=== PATIENT | female | born 1955 | race Caucasian/White ===

== ENCOUNTER 2017-03-30 18:55 | Inpatient (IN) | payer OTHER ==
[~2017-03-30] VITALS: Ht 160 cm; Wt 56.7 kg
--- NOTE | 2017-03-30 18:58 | NUR ---
PT STATES SHE HAD A COLONOSCOPY ON WEDNESDAY THE HAD ONE POLUP REMOVED AND TODAY SHE IS HAVING BRIGHT RED BLOOD WITH CLOTS. PT CALLED DR. HANLEY AND WAS TOLD TO COME TO THE ED. PT STATES SHE MOVED HER BOWELS ABOUT 6 TIMES.
--- NOTE | 2017-03-30 19:22 | ED GI/GU/ABDOMINAL COMPLAINT ---
History of Present Illness General Chief Complaint: General Adult Stated Complaint: RECTAL BLEEDING Source: patient, family, old records Exam Limitations: no limitations Vital Signs & Intake/Output Vital Signs & Intake/Output Vital Signs Date Time Temp Pulse Resp B/P B/P Pulse O2 O2 Flow FiO2 Mean Ox Delivery Rate 03/30 1859 96.7 75 16 132/87 99 Room Air Allergies Coded Allergies: NO KNOWN ALLERGIES (07/07/16) Reconcile Medications Calcium Carbonate/Vitamin D3 (Calcium 500 + D Tablet) (Unknown Strength) TABLET (Unknown Dose) PO DAILY SUPPLEMENT (Reported) Multivitamin (Multi-Day Vitamins) 1 EACH TABLET 1 TAB PO DAILY SUPPLEMENT ( Reported) Simvastatin (Simvastatin*) 20 MG TABLET 1 TAB PO QPM CHOLESTEROL (Reported) Triage Note: PT STATES SHE HAD A COLONOSCOPY ON WEDNESDAY THE HAD ONE POLUP REMOVED AND TODAY SHE IS HAVING BRIGHT RED BLOOD WITH CLOTS. PT CALLED DR. HANLEY AND WAS TOLD TO COME TO THE ED. PT STATES SHE MOVED HER BOWELS ABOUT 6 TIMES. Triage Nurses Notes Reviewed? yes ? n Is pt currently ? No HPI: Patient is a 61 year old female presents complaining of rectal bleeding. Symptoms onset at 1615 today. approximately 8 episodes of zena red blood per rectum. Patient reports she is also passing blood clots greater than the size of a quarter. Patient had a colonoscopy on 03/26/17 and had a large polyp removed by Dr. Bailey. Patient called Dr. Subramanian this evening and was referred to the ER for further evaluation. Pain is minimal cramping sensation intermittently. Denies chest pain, lightheadedness, dyspnea, nausea, vomiting. (ROSMERY BAPTISTE) Past History Travel History Traveled to [place] past 21 day No Medical History Any Pertinent Medical History? see below for history Cardiovascular: hyperlipidemia Gastrointestinal: diverticulosis Surgical History Surgical History: colonoscopy with polypectomy Psychosocial History What is your primary language [place] Tobacco Use: Never used ETOH Use: occasional use Illicit Drug Use: denies illicit drug use Family History Hx Contributory? No (ROSMERY BAPTISTE) Review of Systems Review of Systems Constitutional: Denies: chills, fever. EENTM: Reports: no symptoms. Respiratory: Denies: cough, short of breath. Cardiovascular: Denies: chest pain. GI: Reports: see HPI. Genitourinary: Reports: no symptoms. Musculoskeletal: Reports: no symptoms. Skin: Reports: no symptoms. Neurological/Psychological: Reports: no symptoms. Hematologic/Endocrine: Reports: see HPI, bleeding. Immunologic/Allergic: Reports: no symptoms. (ROSMERY BAPTISTE) Physical Exam Physical Exam General Appearance: well developed/nourished, alert, awake Head: atraumatic, normal appearance Eyes: Bilateral: normal appearance, PERRL, EOMI. Ears, Nose, Throat, Mouth: hearing grossly normal, moist mucous membrane Neck: normal inspection, supple, full range of motion Respiratory: normal breath sounds, no respiratory distress, lungs clear Cardiovascular: regular rate/rhythm Gastrointestinal: normal bowel sounds, soft, non-tender Rectal: small amount of bright red blood in the rectal vault. Back: normal inspection, normal range of motion Extremities: normal range of motion Neurologic/Psych: no motor/sensory deficits, awake, alert, oriented x 3, normal gait, normal mood/affect Skin: intact, normal color, warm/dry Core Measures ACS in differential dx? No Severe Sepsis Present: No Septic Shock Present: No (ROSMERY BAPTISTE) Progress Differential Diagnosis: lower GI bleed secondary to recent procedure, anemia, diverticular bleed, upper gi bleed Initial ED EKG: none (ROSMERY BAPTISTE) Plan of Care: Orders Procedure Date/time Status CBC WITHOUT DIFFERENTIAL 03/31 200 Active Pathway - chart 03/30 2307 Active House Staff 03/30 2307 Active Patient Data 03/30 2307 Active Code Status 03/30 2307 Active Patient Data 03/30 230 Active Admit to inpatient 03/30 2235 Active MISTAKE 03/30 1926 Active PROTHROMBIN TIME 03/30 1926 Complete COMPREHENSIVE METABOLIC PANEL 03/30 1926 Complete CBC WITHOUT DIFFERENTIAL 03/30 1926 Complete TYPE & SCREEN (NOT X-MATCH) 03/30 1926 Complete VTE Mechanical Prophylaxis 03/30 UNK Active Current Medications Sig/Nery Start time Last Medication Dose Stop Time Status Admin Acetaminophen 650 MG Q6 PRN 03/30 2315 UNVr (Tylenol) Acetaminophen 1,000 MG Q6 PRN 03/30 2315 UNVr (Ofirmev) Oxycodone HCl 5 MG Q6P PRN 03/30 2315 UNVr (Roxicodone) Sodium Chloride 1,000 ML BOLUS ONE 03/30 2230 AC 03/30 (Normal Saline 0.9%) 03/30 3008 6895 Laboratory Tests 03/30/17 2000: Anion Gap 13, Estimated GFR > 60, BUN/Creatinine Ratio 32.9 H, Glucose 99, Calcium 9.4, Total Bilirubin 0.5, AST 34, ALT 50, Alkaline Phosphatase 57, Total Protein 6.5, Albumin 4.3, Globulin 2.2, Albumin/Globulin Ratio 2.0, PT 11.4, INR 1.09, CBC w Diff NO MAN DIFF REQ, RBC 3.75 L, MCV 90.7, MCH 30.9, RDW 13.0, MPV 9.1, Gran % 67.8, Lymphocytes % 22.4, Monocytes % 6.9, Eosinophils % 2.3, Basophils % 0.6, Absolute Granulocytes 3.8, Absolute Lymphocytes 1.3, Absolute Monocytes 0.4, Absolute Eosinophils 0.1, Absolute Basophils 0, PUBS MCHC 34.1 1909: Discussed with and seen by Dr. Gracia. Discussed with and seen by Dr. Subramanian 2009: Patient evaluated by Dr. Subramanian: plan for flex sigmoidoscopy this evening. (ROSMERY BAPTISTE) Comments: 03/30/2017 11:02:14 PM patient's case discussed with Dr. Jarrell, who feels it prudent to observe the patient in the intensive care unit given the diverticular bleed. (MAGED KHAN,AUDREY Mattson) Departure Departure Disposition: STILL A PATIENT Condition: Stable Clinical Impression Primary Impression: Lower GI bleed Secondary Impressions: Diverticular hemorrhage Referrals: TONYA KHAN,OVIDIO De Dios (PCP/Family) Departure Forms: Customer Survey General Discharge Information Admission Note [facility] Documentation of Exam: Documentation of any treatments & extenuating circumstances including Concerns Regarding Discharge (functional status, medication knowledge or non-compliance, living conditions, etc.) that warrant an admission rather than observation: Serial complete blood cell counts, monitor for further bleeding. Potential interventional radiology versus further GI intervention if bleeding does not improve. (ROSMERY BAPTISTE) PA/CRM MARKETING EXECUTIVE Co-Sign Statement Statement: ED Attending supervision documentation- [] I saw and evaluated the patient. I have also reviewed all the pertinent lab results and diagnostic results. I agree with the findings and the plan of care as documented in the PA's/CRM MARKETING EXECUTIVE's documentation. [x] I have reviewed the ED Record and agree with the PA's/CRM MARKETING EXECUTIVE's documentation. [] Additions or exceptions (if any) to the PAs/CRM MARKETING EXECUTIVE's note and plan are summarized below: [] (MAGED KHAN,AUDREY Mattson)
--- NOTE | 2017-03-30 19:24 | NUR ---
APPRECAITE TRIAGE NOTE. PT AMBULATORY TO BATHROOM TO PROVIDE URINE SPECIMEN. PA HEILTIMMY TO BEDSIDE FOR EVAL.
--- NOTE | 2017-03-30 20:05 | NUR ---
SST LAV BLUE PINK AND CHURCH DRAWN AND SENT TO LAB
[2017-03-30 20:12] LABS: ABSOLUTE BASOPHIL COUNT 0 /CUMM (0.0-0.2); ABSOLUTE EOSINOPHIL COUNT 0.1 /CUMM (0.0-0.7); ABSOLUTE GRANULOCYTE CT 3.8 /CUMM (1.4-6.5); ABSOLUTE LYMPH COUNT 1.3 /CUMM (1.2-3.4); ABSOLUTE MONOCYTE COUNT 0.4 /CUMM (0.10-0.60); BASOPHIL % 0.6 % (0.0-2.0); EOSINOPHIL % 2.3 % (0-5); GRANULOCYTE % 67.8 % (42.2-75.2); MEAN CORPUSCULAR HGB 30.9 PG (27.0-31.0); MEAN CORPUSCULAR HGB CONC 34.1 G/DL (33.0-37.0); MEAN CORPUSCULAR VOLUME 90.7 FL (81.0-99.0); MEAN PLATELET VOLUME 9.1 FL (7.4-10.4); PLATELET COUNT 227 /CUMM (130-400); RED BLOOD CELL CT 3.75 /CUMM (4.20-5.40); WHITE BLOOD CELL COUNT 5.6 /CUMM (4.8-10.8)
[2017-03-30] MEDS ORDERED: SIMVASTATIN20 M2 PO (20:14)
[2017-03-30] MEDS ORDERED: MULTI-DAY VITA1 EACH PO (20:14)
[2017-03-30] MEDS ORDERED: CALCIUM 500 +1 EAC5 PO (20:15)
[2017-03-30 20:17] LABS: PT 11.4 SEC (9.4-12.5)
--- NOTE | 2017-03-30 20:28 | NUR ---
DR. DUARTE TO BEDSIDE FOR EVALUATION.
--- NOTE | 2017-03-30 20:45 | NUR ---
PER REQUEST OF GI FLEETS TO BE GIVEN 20 MINUTES PRIOR TO GI PROCEDURE OF TIME OF THIS NOTE, GI TEAM NOT SSEMBLED.
--- NOTE | 2017-03-30 21:23 | NUR ---
PT REQUESTS TO DO ENEMA HERSELF, EDUICATED ON USE TO BR WILL NOTIFY THIS RN UPON COMPLETION.
--- NOTE | 2017-03-30 21:26 | NUR ---
PER PT EXPELLED ALOT OF STOOL.
--- NOTE | 2017-03-30 21:33 | NUR ---
GI AT BEDSIDE.
--- NOTE | 2017-03-30 21:50 | NUR ---
GI AT BEDSIDE.
--- NOTE | 2017-03-30 22:03 | NUR ---
JORGE L KHAN AT BEDSIDE,
--- NOTE | 2017-03-30 22:24 | NUR ---
RN AT [facility], [facility].
--- NOTE | 2017-03-30 22:38 | NUR ---
PER DR. BARTON PT TO BE ADMITTED. DISCUSSED WITH ROCK FARLEY AND AT BEDSIDE DISCUSSING WITH DR. SMITH.
--- NOTE | 2017-03-30 23:07 | NUR ---
PER LUIS, PT TO BE ICU OVERNIGHT, PT WITH NO ACTIVE BLEEDING NO BLEEDING FOUND WHEN SCOPE PERFORMED. ON BEDPAN AT THIS TIME NO ACTIVE BLEEDING, BP REMAINS LOW FOR PT MOST LIKEL D/T MEDS.
--- NOTE | 2017-03-30 23:17 | NUR ---
HOUSESTAFF AT BEDSIDE.
--- NOTE | 2017-03-30 23:23 | Cons- Gastroenterology ---
General Information and HPI Consulting Request Date of Consult: 03/30/17 Requested By: Emergency Department Reason for Consult: Hematochezia Source of Information: patient, old records History of Present Illness: The patient had a colonoscopy by Dr. Bailey on March 26 with resection of a large rectal polyp, and noted diverticulosis. She began to pass bright red blood per rectum yesterday, and has continued to do so. She's had approximate 8 passages of blood. She has developed some dizziness, which is positional. There has been no chest pain, shortness of breath, syncope, diarrhea, abdominal pain, nausea, vomiting, fever. She was noticed to have postural hypotension in the emergency room. Allergies/Medications Allergies: Coded Allergies: NO KNOWN ALLERGIES (07/07/16) Home Med List: Calcium Carbonate/Vitamin D3 (Calcium 500 + D Tablet) (Unknown Strength) TABLET 1 TAB PO DAILY SUPPLEMENT (Reported) Multivitamin (Multi-Day Vitamins) 1 EACH TABLET 1 TAB PO DAILY SUPPLEMENT ( Reported) Simvastatin (Simvastatin*) 20 MG TABLET 1 TAB PO QPM CHOLESTEROL (Reported) Current Medications: Current Medications Sig/Nery Start time Last Medication Dose Route Stop Time Status Admin Acetaminophen 650 MG Q6 PRN 03/30 2315 UNVr PO Acetaminophen 1,000 MG Q6 PRN 03/30 2315 UNVr IV Fentanyl Citrate 0 .STK-MED ONE 03/30 2210 DC .ROUTE Oxycodone HCl 5 MG Q6P PRN 03/30 2315 UNVr PO Sodium Chloride 1,000 ML BOLUS ONE 03/30 2230 AC / IV 03/30 232 2258 Sodium Phosphate 1 UNIT ONCE ONE 03/30 2030 DC 03/30 [place] 03/30 203 2100 Past History Travel History Traveled to [place] past 21 day No Medical History Cardiovascular: hyperlipidemia Surgical History Surgical History: none Psychosocial History ETOH Use: occasional use Illicit Drug Use: denies illicit drug use Review of Systems Review of Systems Constitutional: Denies: fever, malaise. EENTM: Denies: icterus, epistaxis. Cardiovascular: Denies: chest pain, edema, syncope. Respiratory: Denies: cough, short of breath. GI: Reports: see HPI. Genitourinary: Denies: dysuria, hematuria. Musculoskeletal: Denies: muscle stiffness, neck pain. Skin: Denies: jaundice, lesions. Neurological/Psychological: Denies: cognitive dysfunction, headache. Hematologic/Endocrine: Reports: bleeding. Denies: bruising, polyuria. Exam & Diagnostic Data Vital Signs and I&O Vital Signs Date Time Temp Pulse Resp B/P B/P Pulse O2 O2 Flow FiO2 Mean Ox Delivery Rate 03/30 1859 96.7 75 16 132/87 99 Room Air Physical Exam: Well-developed well-nourished, in no apparent distress. Alert and oriented with normal cognition. Skin normal, without rash, lesions stigmata of chronic liver disease or jaundice. No adenopathy. No scleral icterus, oropharyngeal lesion, neck mass or thyromegaly. Heart regular rhythm without murmur. Lungs clear bilaterally. Abdomen soft and nondistended with normal bowel sounds; no tenderness, mass or organomegaly. Extremities without clubbing, cyanosis or edema. Pulses are 2+ distally. Results Pertinent Lab Results: Laboratory Tests 03/30 2000 Chemistry Sodium (137 - 145 mmol/L) 138 Potassium (3.5 - 5.1 mmol/L) 4.3 Chloride (98 - 107 mmol/L) 101 Carbon Dioxide (22 - 30 mmol/L) 24 Anion Gap (5 - 16) 13 BUN (7 - 17 mg/dL) 23 H Creatinine (0.5 - 1.0 mg/dL) 0.7 Estimated GFR (>60 ml/min) > 60 BUN/Creatinine Ratio (7 - 25 %) 32.9 H Glucose (65 - 99 mg/dL) 99 Calcium (8.4 - 10.2 mg/dL) 9.4 Total Bilirubin (0.2 - 1.3 mg/dL) 0.5 AST (14 - 36 U/L) 34 ALT (9 - 52 U/L) 50 Alkaline Phosphatase (<127 U/L) 57 Total Protein (6.3 - 8.2 g/dL) 6.5 Albumin (3.5 - 5.0 g/dL) 4.3 Globulin (1.9 - 4.2 gm/dL) 2.2 Albumin/Globulin Ratio (1.1 - 2.2 %) 2.0 Coagulation PT (9.4 - 12.5 SEC) 11.4 INR (0.90 - 1.19) 1.09 Hematology CBC w Diff NO MAN DIFF REQ WBC (4.8 - 10.8 /CUMM) 5.6 RBC (4.20 - 5.40 /CUMM) 3.75 L Hgb (12.0 - 16.0 G/DL) 11.6 L Hct (37 - 47 %) 34.0 L MCV (81.0 - 99.0 FL) 90.7 MCH (27.0 - 31.0 PG) 30.9 RDW (11.5 - 14.5 %) 13.0 Plt Count (130 - 400 /CUMM) 227 MPV (7.4 - 10.4 FL) 9.1 Gran % (42.2 - 75.2 %) 67.8 Lymphocytes % (20.5 - 51.1 %) 22.4 Monocytes % (1.7 - 9.3 %) 6.9 Eosinophils % (0 - 5 %) 2.3 Basophils % (0.0 - 2.0 %) 0.6 Absolute Granulocytes (1.4 - 6.5 /CUMM) 3.8 Absolute Lymphocytes (1.2 - 3.4 /CUMM) 1.3 Absolute Monocytes (0.10 - 0.60 /CUMM) 0.4 Absolute Eosinophils (0.0 - 0.7 /CUMM) 0.1 Absolute Basophils (0.0 - 0.2 /CUMM) 0 PUBS MCHC (33.0 - 37.0 G/DL) 34.1 Assessment/Plan Assessment/Recommendations: Hematochezia with postural hypotension, status post colonoscopy and polypectomy. Most likely post-polypectomy bleeding. Recommendations * IV fluids * Close monitoring of vital signs * Flexible sigmoidoscopy in the emergency room * Further recommendations to follow the procedure Consult Acknowledgment - Thank you for your consult request.
--- NOTE | 2017-03-30 23:32 | Proc Note Gastroenterology ---
Gastroenterology Procedure Procedure Date: 03/30/17 GI Procedure(s): Flexible sigmoidoscopy Motor Vehicles Supervisor: Vince Subramanian M.D. ASA Classification: II Indications: Hematochezia, status post colonoscopy/polypectomy Meds Received: Fentanyl 100 g, Versed 3 mg IV Patient's Tolerance: good Complications: None Extent Reached: Proximal sigmoid/distal descending colon Procedure: The patient signed informed consent, was placed in the Sun position, and medicated. Examination of the rectum was normal. The Olympus high-definition variable stiffness colonoscope was inserted through the anus and advanced to the descending colon. Findings: There was no blood within the rectal vault (status post enema). The ulcerated distal rectal polypectomy site was identified; there was a small coagulum overlying it, which was washed/pushed off. No bleeding ensued. There was no underlying protruding vessel, or friability. There was fresh blood coating the mucosa in the sigmoid colon, and diverticula were identified. Baseline blood pressure prior to sedation was 99 systolic. It was 90, following the procedure. Heart rate remained in the 60s throughout. Impression: * No evidence of post polypectomy bleeding lesion * Left-sided diverticulosis, with fresh blood Recommendations: * Admit to hospital for lower GI bleed * Clear liquid diet, IV fluids to maintain blood pressure in the 90s-100s * Check CBC at midnight, and in the morning * Type and screen * With evidence of continued bleeding, consideration for bowel preparation and full colonoscopy
--- NOTE | 2017-03-31 00:16 | History & Physical ---
SIN PATIÑO 03/30/17 0555: General Information and HPI MD Statement: I have seen and personally examined DIAMOND RUELAS and documented this H&P. The patient is a 61 year old F who presented with a patient stated chief complaint of GI bleed. Source of Information: patient Exam Limitations: no limitations, unable to give history History of Present Illness: Patient is a 61-year-old healthy woman with no significant past medical history except for dyslipidemia presented to the ED for evaluation of bright red blood per rectum. Patient had a screening colonoscopy done this 03/26/[address] Bailey and a large sessile polyp was removed. Patient was doing fine up with the procedure. Yesterday at around 4:15 PM patient started having bright red blood per rectum not associated with any diarrhea or constipation. Patient had almost 8 episodes of bleeding before she came to the ED. In the ED patient denied any abdominal discomfort and nausea vomiting. Denies any chest discomfort or repeating palpitations. Other review of system was negative. Dr. Subramanian was consulted. Her H&H on admission was stable But low 11.6/36. Vitals were stable Patient was prepped with a Fleet enema and had a sigmoidoscopy done that did not reveal any evidence of post polypectomy bleeding lesion, however it did show left-sided diverticulosis with fresh blood. Allergies/Medications Allergies: Coded Allergies: NO KNOWN ALLERGIES (07/07/16) Home Med list Calcium Carbonate/Vitamin D3 (Calcium 500 + D Tablet) (Unknown Strength) TABLET (Unknown Dose) PO DAILY SUPPLEMENT (Reported) Multivitamin (Multi-Day Vitamins) 1 EACH TABLET 1 TAB PO DAILY SUPPLEMENT ( Reported) Simvastatin (Simvastatin*) 20 MG TABLET 1 TAB PO QPM CHOLESTEROL (Reported) Past History Travel History Traveled to [place] past 21 day No Medical History Cardiovascular: hyperlipidemia Gastrointestinal: diverticulosis Surgical History Surgical History: colonoscopy with polypectomy Past Family/Social History Psychosocial History ETOH Use: occasional use Illicit Drug Use: denies illicit drug use Review of Systems Review of Systems Constitutional: Denies: chills, diaphoresis, fever, malaise. EENTM: Denies: blurred vision, double vision, visual changes, eye pain, eye drainage. Cardiovascular: Denies: chest pain, edema, orthopena. Respiratory: Denies: cough, hemoptysis, orthopnea. GI: Reports: bloody stool. Denies: abdominal pain, bloating, constipation. Genitourinary: Denies: discharge, dysuria, frequency, hematuria. Musculoskeletal: Denies: back pain, gout, joint pain. Skin: Denies: change in skin color, change in hair/nails, dryness. Neurological/Psychological: Denies: ataxia, cognitive dysfunction, confusion. Hematologic/Endocrine: Denies: bruising, bleeding, polyuria. Immunologic/Allergic: Denies: splenectomy, HIV/AIDS. Exam & Diagnostic Data Last 24 Hrs of Vital Signs/I&O Vital Signs Date Time Temp Pulse Resp B/P B/P Pulse O2 O2 Flow FiO2 Mean Ox Delivery Rate 03/30 1859 96.7 75 16 132/87 99 Room Air Intake & Output 03/31 0800 03/31 0000 03/30 1600 Intake Total Output Total Balance Patient 127 lb Weight Weight Reported by Patient Measurement Method Physical Exam General Appearance Alert, Oriented X3 Skin No Rashes, No Breakdown Skin Temp/Moisture Exam: Warm/Dry Sepsis Skin Exam (color): Normal for Ethnicity, Cyanotic HEENT Atraumatic, PERRLA Neck Supple, No JVD Cardiovascular Regular Rate, Normal S1, Normal S2 Lungs Clear to Auscultation Abdomen Normal Bowel Sounds, Soft, No Tenderness Neurological Normal Gait, Normal Speech, Strength at 5/5 X4 Ext Last 24 Hrs of Labs/Nirav: Laboratory Tests 03/30/171999: Anion Gap 13, Estimated GFR > 60, BUN/Creatinine Ratio 32.9 H, Glucose 99, Calcium 9.4, Total Bilirubin 0.5, AST 34, ALT 50, Alkaline Phosphatase 57, Total Protein 6.5, Albumin 4.3, Globulin 2.2, Albumin/Globulin Ratio 2.0, PT 11.4, INR 1.09, CBC w Diff NO MAN DIFF REQ, RBC 3.75 L, MCV 90.7, MCH 30.9, RDW 13.0, MPV 9.1, Gran % 67.8, Lymphocytes % 22.4, Monocytes % 6.9, Eosinophils % 2.3, Basophils % 0.6, Absolute Granulocytes 3.8, Absolute Lymphocytes 1.3, Absolute Monocytes 0.4, Absolute Eosinophils 0.1, Absolute Basophils 0, PUBS MCHC 34.1 Assessment/Plan Assessment: Patient is a 61-year-old healthy woman with no significant past medical history except for dyslipidemia presented to the ED for evaluation of bright red blood per rectum. Patient already had been seen by Dr. Subramanian in the ED, had sigmoidoscopy that did not reveal any evidence of post polypectomy bleeding lesion, however it did show left-sided diverticulosis with fresh blood. Assessment and plan: 1. Acute blood loss anemia due to lower GI bleed(likely diverticular bleed) status post sigmoidoscopy in the ED: * We'll admit the patient to the critical care unit for close monitoring * Do serial CBC, at midnight and in the morning * Watch for any active signs of complete * Type and screen has been done,Keep hemoglobin above 7 * Watch for any active signs of bleed * GI consult with Dr. Subramanian has been obtained, sigmoidoscopy done showed left -sided diverticulosis with fresh blood. If patient continues to have active bleed, we will prep her for possible colonoscopy in the morning. * Watch for any hemodynamic instability * Continue normal saline at the rate of 125 mL per hour. * Nothing by mouth for now. 2. History of dyslipidemia * Continue simvastatin for the morning. Mild to moderate pain controlled with Tylenol DVT prophylaxis with Alps Patient is full code As Ranked By This Provider Problem List: 1. Lower GI bleed 2. Diverticular hemorrhage Core Measures/Miscellaneous Acute Coronary Syndrome ACS Diagnosis: No Cerebrovascular Accident CVA/TIA Diagnosis: No Congestive Heart Failure CHF Diagnosis: No Venous Thromboembolism VTE Risk Factors: Acute medical illness, Age > 40 [facility] prophylaxis d/t: No contraindications No VTE Pharm Prophylaxis d/t: Active bleeding VTE Diagnosis: No VTE Type: NONE VTE Confirmed by (Test): NONE Severe Sepsis Severe Sepsis Present: No Septic Shock Septic Shock Present: No Miscellaneous Documentation Attending Case Discussed With: ADSI SMITH MD Primary Care Physician: OVIDIO CASTANEDA MD Patient sees these Specialists Not available at this time Level of Patient Care: Critical Care (CRI) TANYA SMITH MD 03/31/17 0139: Attending MD Review Statement Attending Statement Attending MD Statement: examined this patient, discuss w/resident/PA/BAKESHOP CLEANER, agreed w/resident/PA/BAKESHOP CLEANER, discussed with family Attending Assessment/Plan: 61 yo F with h/o HLD, 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 She returns to ER today for c/o bright red blood per rectum (about 8 episodes) with clots, with abdominal cramping. She denies chest pain, dyspnea, palpitations or lightheadedness. Denies heartburn, melena or hematemesis. GI was consulted by the ER. Patient was prepped for bedside sigmoidoscopy which was performed by Dr. Subramanian. There was no bleeding from the rectal polypectomy site. There was fresh blood coating the mucosa in sigmoid colon and diverticula were identified. Vitals stable, except SBP was in 90-110's, low 90's at one point after receiving meds for the procedure. Exam: AAO, in no distress, MMM, Chest b/l clear, Heart S1S2 regular, Abdomen soft, minimal tenderness to lower quadrants, BS+. Labs: H/ H 11.6/34, INR 1.09, BUN 23. 1. Lower GI bleed likely diverticular bleed, ABLA. ICU monitoring overnight, type and crossmatch, two wide bore peripheral lines, CBC Q8 hourly, NPO, in case she bleeds again, will need to prep her for colonoscopy in AM. Keep Hb > 7.0 or Hct > 21. IV fluids, monitor BP. CRCU consult in AM. Please obtain baseline EKG. DVT ppx Alps. Full code. TTS > 35 mins
--- NOTE | 2017-03-31 01:39 | Admission Certification ---
Admission Certification Certification Statement - As attending physician, I certify that at the time of - admission, based on clinical presentation, severity of - symptoms, need for further diagnostic testing and - therapeutic interventions, and risk of adverse outcomes - without in-hospital treatment, in my clinical assessment, - this patient requires an acute hospital stay for a minimum - of two nights or longer. I have also considered psychsocial - factors such as support system, advanced age, financial - issues, cognitive issues, and failed out-patient treatments, - past re-admission history, safety of patient, and lack of - compliance as applicable. Specific rationale supporting this admission is: Lower GI bleeding, likely diverticular bleed requiring ICU level of care.
--- NOTE | 2017-03-31 03:22 | NUR ---
0200 LABS DRAWN NO ACTIVE BLEEDING NOTED NO PAIN ABD SOFT. LITER NS AT 125 CC/HR HUNG.
[2017-03-31 03:27] LABS: ABSOLUTE BASOPHIL COUNT 0 /CUMM (0.0-0.2); ABSOLUTE EOSINOPHIL COUNT 0.1 /CUMM (0.0-0.7); ABSOLUTE GRANULOCYTE CT 3.3 /CUMM (1.4-6.5); ABSOLUTE LYMPH COUNT 1.5 /CUMM (1.2-3.4); ABSOLUTE MONOCYTE COUNT 0.4 /CUMM (0.10-0.60); BASOPHIL % 0.5 % (0.0-2.0); EOSINOPHIL % 2.3 % (0-5); HEMATOCRIT 27.7 % (37-47); MEAN CORPUSCULAR HGB 30.7 PG (27.0-31.0); MEAN CORPUSCULAR HGB CONC 33.8 G/DL (33.0-37.0); MEAN CORPUSCULAR VOLUME 90.7 FL (81.0-99.0); MEAN PLATELET VOLUME 8.9 FL (7.4-10.4); PLATELET COUNT 173 /CUMM (130-400); RBC DISTRIBUTION WIDTH 13.3 % (11.5-14.5); RED BLOOD CELL CT 3.06 /CUMM (4.20-5.40); WHITE BLOOD CELL COUNT 5.4 /CUMM (4.8-10.8)
--- NOTE | 2017-03-31 04:57 | NUR ---
PT AWAKE AND ALERT AND AMBULATED TO BATHROM WITH STEADY GAIT NOTED, PT DENIES PAIN AT THIS TIME AND STATES THAT SHE GETS A LITTLE CRAMPING ONCE IN AWHILE, WHEN PT RETURNED FROM BATHROOM, SHE STATES THAT THERE WAS JUST A SPT OF RED BLOOD ON TOILET PAPER WHEN SHE WIPED . DENIES DIZZINESS. FLUIDS CONTINUE TO INFUSE.
--- NOTE | 2017-03-31 06:38 | NUR ---
PT AWAKE AND ALERT FOR VITALS, DENIES PAIN AT THIS TIME.FLUIDS CONTINUE TO INFUSE AT THIS TIME. ALPS IN PLACE TO BILATERAL LOWER EXTREMITIES. LIGHTS DIMMED .
--- NOTE | 2017-03-31 07:00 | Cons- CRCU ---
General Information and HPI Allergies/Medications Allergies: Coded Allergies: NO KNOWN ALLERGIES (07/07/16) Home Med List: Calcium Carbonate/Vitamin D3 (Calcium 500 + D Tablet) (Unknown Strength) TABLET 1 TAB PO DAILY SUPPLEMENT (Reported) Multivitamin (Multi-Day Vitamins) 1 EACH TABLET 1 TAB PO DAILY SUPPLEMENT ( Reported) Simvastatin (Simvastatin*) 20 MG TABLET 1 TAB PO QPM CHOLESTEROL (Reported) Past History Travel History Traveled to [place] past 21 day No Medical History Cardiovascular: hyperlipidemia Gastrointestinal: diverticulosis Surgical History Surgical History: colonoscopy with polypectomy Psychosocial History ETOH Use: occasional use Illicit Drug Use: denies illicit drug use Assessment/Plan Consult Acknowledgment - Thank you for your consult request.
[2017-03-31 07:24] LABS: ABSOLUTE BASOPHIL COUNT 0 /CUMM (0.0-0.2); ABSOLUTE EOSINOPHIL COUNT 0.2 /CUMM (0.0-0.7); ABSOLUTE LYMPH COUNT 1.5 /CUMM (1.2-3.4); ABSOLUTE MONOCYTE COUNT 0.4 /CUMM (0.10-0.60); BASOPHIL % 0.4 % (0.0-2.0); EOSINOPHIL % 3.4 % (0-5); GRANULOCYTE % 58.9 % (42.2-75.2); MEAN CORPUSCULAR HGB CONC 34.3 G/DL (33.0-37.0); MEAN CORPUSCULAR VOLUME 90.4 FL (81.0-99.0); MEAN PLATELET VOLUME 9.2 FL (7.4-10.4); PLATELET COUNT 169 /CUMM (130-400); RBC DISTRIBUTION WIDTH 12.9 % (11.5-14.5); RED BLOOD CELL CT 2.99 /CUMM (4.20-5.40)
--- NOTE | 2017-03-31 07:32 | NUR ---
DR POWERS DOWN TO EVALUATE PT. PT RESTING IN ROOM WITH LIGHTS DIMMED AT THIS TIME. FAMILY ALSO AT BEDSIDE
--- NOTE | 2017-03-31 09:09 | NUR ---
PT DOWN GRADED TO GM PER HOUSE STAFF. PT REMAINS NPO AT THIS TIME , DR CARBALLO IS SUPOSED TO COME AND EVALUATE PT . PT ASKING IF SHE IS GOING TO HAVE COLONOSCOPY.
--- NOTE | 2017-03-31 11:11 | NUR ---
PT RESTING ON BED, WAITING ON DR CARBALLO TO COME SEE HER
--- NOTE | 2017-03-31 11:14 | PN- Gastroenterology ---
Assessment/Plan Assessment/Recommendations: Lower GI bleed, apparently ceased. Most likely etiology diverticulosis. No evidence of post polypectomy bleeding on sigmoidoscopy. Stable vital signs, drop in hematocrit but has plateaued. Recommendations * Full liquid diet * With evidence of rebleeding, consideration for full colonoscopy. Please call gastroenterology service. * Check CBC in a.m. * If without rebleeding, and with stable CBC, probable discharge tomorrow. Subjective Subjective: No evidence of bleeding overnight. No abdominal pain, nausea, dizziness. Objective Vital Signs and I&Os Vital Signs Date Time Temp Pulse Resp B/P B/P Pulse O2 O2 Flow FiO2 Mean Ox Delivery Rate 03/31 952 97.6 66 16 108/52 97 Room Air 03/31 0612 98.9 64 20 118/56 98 Room Air 03/31 0459 97.2 58 16 106/56 100 Room Air 03/31 0355 97.2 52 20 111/60 97 Room Air 03/30 1859 96.7 75 16 132/87 99 Room Air Intake & Output 03/31 1600 03/31 0400 03/30 1600 03/30 0400 03/29 1600 03/29 0400 Intake Total 1000 Output Total 3 Balance 997 Intake, IV 1000 Intake, Oral 0 Output, Urine 3 Patient 127 lb Weight Weight Reported by Patient Measurement Method Physical Exam: Abdomen is soft and nondistended, nontender Current Medications: Current Medications Sig/Nery Start time Last Medication Dose Route Stop Time Status Admin Acetaminophen 650 MG Q6P PRN 03/30 2315 AC PO Acetaminophen 1,000 MG Q6P PRN 03/30 2315 AC IV Atorvastatin Calcium 10 MG 1700 03/31 1700 AC PO Chlorhexidine 1 GM .STK-MED ONE 03/31 0740 DC Gluconate TOP 03/31 0741 Fentanyl Citrate 0 .STK-MED ONE 03/30 2210 DC .ROUTE Oxycodone HCl 5 MG Q6P PRN 03/30 2315 AC PO Sodium Chloride 1,000 ML Q8H 03/31 0015 AC 03/31 IV 0907 Sodium Chloride 1,000 ML BOLUS ONE 03/30 2230 DC 03/30 IV 03/30 2329 2258 Sodium Phosphate 1 UNIT ONCE ONE 03/30 2030 DC 03/30 UT 03/30 2031 2100 Results Pertinent Lab Results: Laboratory Tests 05/10 05/10 05/10 1000 0700 0500 Chemistry Sodium (137 - 145 mmol/L) 139 Cancelled Potassium (3.5 - 5.1 mmol/L) 4.3 Cancelled Chloride (98 - 107 mmol/L) 108 H Cancelled Carbon Dioxide (22 - 30 mmol/L) 24 Cancelled Anion Gap (5 - 16) 6 Cancelled BUN (7 - 17 mg/dL) 17 Cancelled Creatinine (0.5 - 1.0 mg/dL) 0.7 Cancelled Estimated GFR (>60 ml/min) > 60 BUN/Creatinine Ratio Cancelled Glucose (65 - 99 mg/dL) 82 Calcium (8.4 - 10.2 mg/dL) 7.8 L Phosphorus (2.5 - 4.5 mg/dL) 4.4 Magnesium (1.6 - 2.3 mg/dL) 1.8 Total Bilirubin (0.2 - 1.3 mg/dL) 0.6 AST (14 - 36 U/L) 23 ALT (9 - 52 U/L) 40 Albumin (3.5 - 5.0 g/dL) 3.0 L Hematology CBC w Diff Cancelled NO MAN DIFF REQ WBC (4.8 - 10.8 /CUMM) Cancelled 5.0 RBC (4.20 - 5.40 /CUMM) Cancelled 2.99 L Hgb (12.0 - 16.0 G/DL) Cancelled 9.3 L Hct (37 - 47 %) Cancelled 27.0 L MCV (81.0 - 99.0 FL) Cancelled 90.4 MCH (27.0 - 31.0 PG) Cancelled 31.0 RDW (11.5 - 14.5 %) Cancelled 12.9 Plt Count (130 - 400 /CUMM) Cancelled 169 MPV (7.4 - 10.4 FL) Cancelled 9.2 Gran % (42.2 - 75.2 %) 58.9 Lymphocytes % (20.5 - 51.1 %) 29.2 Monocytes % (1.7 - 9.3 %) 8.1 Eosinophils % (0 - 5 %) 3.4 Basophils % (0.0 - 2.0 %) 0.4 Absolute Granulocytes (1.4 - 6.5 /CUMM) 3.0 Absolute Lymphocytes (1.2 - 3.4 /CUMM) 1.5 Absolute Monocytes (0.10 - 0.60 /CUMM) 0.4 Absolute Eosinophils (0.0 - 0.7 /CUMM) 0.2 Absolute Basophils (0.0 - 0.2 /CUMM) 0 PUBS MCHC (33.0 - 37.0 G/DL) Cancelled 34.3 03/31 03/31 03/31 0320 0004 0000 Hematology CBC w Diff NO MAN DIFF REQ Cancelled Cancelled WBC (4.8 - 10.8 /CUMM) 5.4 Cancelled Cancelled RBC (4.20 - 5.40 /CUMM) 3.06 L Cancelled Cancelled Hgb (12.0 - 16.0 G/DL) 9.4 L Cancelled Cancelled Hct (37 - 47 %) 27.7 L Cancelled Cancelled MCV (81.0 - 99.0 FL) 90.7 Cancelled Cancelled MCH (27.0 - 31.0 PG) 30.7 Cancelled Cancelled RDW (11.5 - 14.5 %) 13.3 Cancelled Cancelled Plt Count (130 - 400 /CUMM) 173 Cancelled Cancelled MPV (7.4 - 10.4 FL) 8.9 Cancelled Cancelled Gran % (42.2 - 75.2 %) 61.0 Lymphocytes % (20.5 - 51.1 %) 28.3 Monocytes % (1.7 - 9.3 %) 7.9 Eosinophils % (0 - 5 %) 2.3 Basophils % (0.0 - 2.0 %) 0.5 Absolute Granulocytes (1.4 - 6.5 /CUMM) 3.3 Absolute Lymphocytes (1.2 - 3.4 /CUMM) 1.5 Absolute Monocytes (0.10 - 0.60 /CUMM) 0.4 Absolute Eosinophils (0.0 - 0.7 /CUMM) 0.1 Absolute Basophils (0.0 - 0.2 /CUMM) 0 PUBS MCHC (33.0 - 37.0 G/DL) 33.8 Cancelled Cancelled 03/30 2000 Chemistry Sodium (137 - 145 mmol/L) 138 Potassium (3.5 - 5.1 mmol/L) 4.3 Chloride (98 - 107 mmol/L) 101 Carbon Dioxide (22 - 30 mmol/L) 24 Anion Gap (5 - 16) 13 BUN (7 - 17 mg/dL) 23 H Creatinine (0.5 - 1.0 mg/dL) 0.7 Estimated GFR (>60 ml/min) > 60 BUN/Creatinine Ratio (7 - 25 %) 32.9 H Glucose (65 - 99 mg/dL) 99 Calcium (8.4 - 10.2 mg/dL) 9.4 Total Bilirubin (0.2 - 1.3 mg/dL) 0.5 AST (14 - 36 U/L) 34 ALT (9 - 52 U/L) 50 Alkaline Phosphatase (<127 U/L) 57 Total Protein (6.3 - 8.2 g/dL) 6.5 Albumin (3.5 - 5.0 g/dL) 4.3 Globulin (1.9 - 4.2 gm/dL) 2.2 Albumin/Globulin Ratio (1.1 - 2.2 %) 2.0 Coagulation PT (9.4 - 12.5 SEC) 11.4 INR (0.90 - 1.19) 1.09 Hematology CBC w Diff NO MAN DIFF REQ WBC (4.8 - 10.8 /CUMM) 5.6 RBC (4.20 - 5.40 /CUMM) 3.75 L Hgb (12.0 - 16.0 G/DL) 11.6 L Hct (37 - 47 %) 34.0 L MCV (81.0 - 99.0 FL) 90.7 MCH (27.0 - 31.0 PG) 30.9 RDW (11.5 - 14.5 %) 13.0 Plt Count (130 - 400 /CUMM) 227 MPV (7.4 - 10.4 FL) 9.1 Gran % (42.2 - 75.2 %) 67.8 Lymphocytes % (20.5 - 51.1 %) 22.4 Monocytes % (1.7 - 9.3 %) 6.9 Eosinophils % (0 - 5 %) 2.3 Basophils % (0.0 - 2.0 %) 0.6 Absolute Granulocytes (1.4 - 6.5 /CUMM) 3.8 Absolute Lymphocytes (1.2 - 3.4 /CUMM) 1.3 Absolute Monocytes (0.10 - 0.60 /CUMM) 0.4 Absolute Eosinophils (0.0 - 0.7 /CUMM) 0.1 Absolute Basophils (0.0 - 0.2 /CUMM) 0 PUBS MCHC (33.0 - 37.0 G/DL) 34.1
--- NOTE | 2017-03-31 12:25 | NUR ---
PT ASSIGNED ROOM 224 BED 1
--- NOTE | 2017-03-31 13:14 | NUR ---
REPORT GIVEN TO JONN HARRINGTON. [facility] CALLED FOR PT TRANSPORT.
--- NOTE | 2017-03-31 13:35 | Patient Discharge Instructions ---
Discharge Instructions General Discharge Information You were seen/treated for: Lower GI Bleed s/p flexible sigmoidoscopy Special Instructions: See your PCP and Dr. Subramanian in 1 week for further recommendations. Diet Recommended Diet: Regular Activity Activity Self Limited: Yes Acute Coronary Syndrome Inclusion Criteria At DC or during hospital stay patient has or had the following: ACS DIAGNOSIS No Discharge Core Measures Meds if any: Prescribed or Continued at Discharge Meds if any: NOT Prescribed or Continued at Discharge Congestive Heart Failure Inclusion Criteria At DC or during hospital stay patient has or had the following: CHF DIAGNOSIS No Discharge Core Measures Meds if any: Prescribed or Continued at Discharge Meds if any: NOT Prescribed or Continued at Discharge Cerebrovascular accident Inclusion Criteria At DC or during hospital stay patient has or had the following: CVA/TIA Diagnosis No Discharge Core Measures Meds if any: Prescribed or Continued at Discharge Meds if any: NOT Prescribed or Continued at Discharge Venous thromboembolism Inclusion Criteria VTE Diagnosis No VTE Type NONE VTE Confirmed by (Test) NONE Discharge Core Measures - Per Current guidelines, there needs to be overlap - treatment for the first 5 days of Warfarin therapy. - If discharged on Warfarin prior to 5 days of - overlap therapy, the patient will need to be - assessed for post discharge needs including - *Post discharge parental anticoagulation - *Warfarin and/or parental anticoagulation education - *Follow up date to check INR post discharge At least 5 days overlap therapy as Inpatient No Meds if any: Prescribed or Continued at Discharge Note: Overlap Therapy is Warfarin and Anticoagulant Meds if any: NOT Prescribed or Continued at Discharge
--- NOTE | 2017-03-31 13:44 | PN- Housestaff ---
See Addendum Subjective Follow-up For: Lowert GI bleed Subjective: Patient is lying comfortably in bed with no complaints. She states that she did not have a bloody BM since this AM. Review of Systems Constitutional: Reports: see HPI. Objective Last 24 Hrs of Vital Signs/I&O Vital Signs Date Time Temp Pulse Resp B/P B/P Pulse O2 O2 Flow FiO2 Mean Ox Delivery Rate 03/31 1315 97.5 64 18 105/55 98 Room Air Room Air 03/31 0952 97.6 66 16 108/52 97 Room Air 03/31 0612 98.9 64 20 118/56 98 Room Air 03/31 0459 97.2 58 16 106/56 100 Room Air 03/31 0355 97.2 52 20 111/60 97 Room Air 03/30 1859 96.7 75 16 132/87 99 Room Air Intake & Output 03/31 1600 03/31 0800 03/31 0000 Intake Total 1000 0 Output Total 3 Balance 1000 -3 Intake, IV 1000 Intake, Oral 0 Output, Urine 3 Patient 127 lb Weight Weight Reported by Patient Measurement Method Physical Exam General Appearance: Alert, Oriented X3, Cooperative, No Acute Distress Cardiovascular: Regular Rate, Normal S1, Normal S2 Lungs: Clear to Auscultation, Normal Air Movement Abdomen: Soft, No Tenderness Neurological: Normal Speech, Strength at 5/5 X4 Ext, Normal Tone, Sensation Intact Extremities: No Edema Current Medications: Current Medications Sig/Nery Start time Last Medication Dose Route Stop Time Status Admin Acetaminophen 650 MG Q6P PRN 03/30 2315 AC PO Acetaminophen 1,000 MG Q6P PRN 03/30 2315 AC IV Atorvastatin Calcium 10 MG 1700 03/31 1700 AC PO Chlorhexidine 1 GM .STK-MED ONE 03/31 0740 DC Gluconate TOP 03/31 0741 Fentanyl Citrate 0 .STK-MED ONE 03/30 2210 DC .ROUTE Oxycodone HCl 5 MG Q6P PRN 03/30 2315 AC PO Sodium Chloride 1,000 ML Q8H 03/31 0015 AC 03/31 IV 0907 Sodium Chloride 1,000 ML BOLUS ONE 03/30 2230 DC 03/30 IV 03/30 2329 2258 Sodium Phosphate 1 UNIT ONCE ONE 03/30 2030 DC 03/30 UT 03/30 203 2100 Last 24 Hrs of Lab/Nirav Results Last 24 Hrs of Labs/Mics: Laboratory Tests 03/31/17 1000: CBC w Diff Cancelled, WBC Cancelled, RBC Cancelled, Hgb Cancelled, Hct Cancelled , MCV Cancelled, MCH Cancelled, RDW Cancelled, Plt Count Cancelled, MPV Cancelled, PUBS MCHC Cancelled 03/31/17 0700: Anion Gap 6, Estimated GFR > 60, Glucose 82, Calcium 7.8 L, Phosphorus 4.4, Magnesium 1.8, Total Bilirubin 0.6, AST 23, ALT 40, Albumin 3.0 L, CBC w Diff NO MAN DIFF REQ, RBC 2.99 L, MCV 90.4, MCH 31.0, RDW 12.9, MPV 9.2, Gran % 58.9 , Lymphocytes % 29.2, Monocytes % 8.1, Eosinophils % 3.4, Basophils % 0.4, Absolute Granulocytes 3.0, Absolute Lymphocytes 1.5, Absolute Monocytes 0.4, Absolute Eosinophils 0.2, Absolute Basophils 0, PUBS MCHC 34.3 03/31/17 0500: Sodium Cancelled, Potassium Cancelled, Chloride Cancelled, Carbon Dioxide Cancelled, Anion Gap Cancelled, BUN Cancelled, Creatinine Cancelled, BUN/ Creatinine Ratio Cancelled 03/31/17 0320: CBC w Diff NO MAN DIFF REQ, RBC 3.06 L, MCV 90.7, MCH 30.7, RDW 13.3, MPV 8.9, Gran % 61.0, Lymphocytes % 28.3, Monocytes % 7.9, Eosinophils % 2.3, Basophils % 0.5, Absolute Granulocytes 3.3, Absolute Lymphocytes 1.5, Absolute Monocytes 0.4 , Absolute Eosinophils 0.1, Absolute Basophils 0, PUBS MCHC 33.8 03/31/17 0004: CBC w Diff Cancelled, WBC Cancelled, RBC Cancelled, Hgb Cancelled, Hct Cancelled , MCV Cancelled, MCH Cancelled, RDW Cancelled, Plt Count Cancelled, MPV Cancelled, PUBS MCHC Cancelled 03/31/17 0000: CBC w Diff Cancelled, WBC Cancelled, RBC Cancelled, Hgb Cancelled, Hct Cancelled , MCV Cancelled, MCH Cancelled, RDW Cancelled, Plt Count Cancelled, MPV Cancelled, PUBS MCHC Cancelled 03/30/17 2000: Anion Gap 13, Estimated GFR > 60, BUN/Creatinine Ratio 32.9 H, Glucose 99, Calcium 9.4, Total Bilirubin 0.5, AST 34, ALT 50, Alkaline Phosphatase 57, Total Protein 6.5, Albumin 4.3, Globulin 2.2, Albumin/Globulin Ratio 2.0, PT 11.4, INR 1.09, CBC w Diff NO MAN DIFF REQ, RBC 3.75 L, MCV 90.7, MCH 30.9, RDW 13.0, MPV 9.1, Gran % 67.8, Lymphocytes % 22.4, Monocytes % 6.9, Eosinophils % 2.3, Basophils % 0.6, Absolute Granulocytes 3.8, Absolute Lymphocytes 1.3, Absolute Monocytes 0.4, Absolute Eosinophils 0.1, Absolute Basophils 0, PUBS MCHC 34.1 Lines/Diet/Fluids Lines: peripheral lines Assessment/Plan Assessment: 61 y/o F who underwent a colonscopy on 03/26, that revealed left sided diverticulosis and 1.5 cm sessile rectal polyp, which was removed, presents to the ED with complaints of 8 episodes of BRBPR with clots and abdominal cramping. GI saw the patient in the ED, where she underwent a flexible sigmoidoscopy There was no bleeding from the rectal polypectomy site. There was fresh blood coating the mucosa in sigmoid colon and diverticula were identified. Patient was initially admitted to the ICU overnight and then downgraded to as she was found to be stable. Problem List: 1) Lower GI Bleed with no evidence of post polypectomy bleeding lesion and left sided diverticulosis with fresh blood. 2) Dyslipidemia Plan: - Admit to General Medicine. - CBC has remained stable. - Recheck CBC Q12 - Patient has been seen by GI, who have recommended restarting and advancing diet as tolerated. If the patient is able to tolerate both lunch and dinner, she can be discharged this evening, as she wants to go home. - Pain Management: Tylenol and Oxycodone - DVT PPX: ALPS - Code Status: Full Code. Problem List: 1. Lower GI bleed Pain Ratin Pain Location: None Pain Goal: Pain 4 or less Pain Plan: Per EMR Tomorrow's Labs & Rationales: CBC in AM for H/H DVT/Prophylaxis: mechanical
[2017-03-31 14:12] VITALS: BP 118/68
--- NOTE | 2017-03-31 15:12 | Discharge Summary ---
Visit Information Visit Dates Admission Date: 03/30/17 Discharge Date: 04/01/2017 Hospital Course Course Attending Physician: PATRICK MUNIZ MD Primary Care Physician: TONYA KHAN,OVIDIO De Dios Consulting Request: Consulting Specialty: Gastroenterology Consulting Physician: Dr. Bryn Subramanian Reason for Consult: Lower GI Bleeding Hospital Course: Patient is a 61-year-old healthy woman with no significant past medical history except for dyslipidemia presented to the ED for evaluation of bright red blood per rectum. Patient already had been seen by Dr. Subramanian in the ED, had sigmoidoscopy that did not reveal any evidence of post polypectomy bleeding lesion, however it did show left-sided diverticulosis with fresh blood. She was initially admitted to the ICU for closer monitoring and then downgraded to General Medicine, when she was found to be stable hemodynamically. Her H/H remained stable. She was started on a diet, which was later advanced. She will be discharged and then asked to follow up with Dr. Subramanian and an outpatient, for a colonoscopy with full bowel preparation. Allergies: Coded Allergies: NO KNOWN ALLERGIES (07/07/16) Significant Procedures: Flexible Sigmoidoscopy done on 03/30/2017: Impression: * No evidence of post polypectomy bleeding lesion * Left-sided diverticulosis, with fresh blood Recommendations: * Admit to hospital for lower GI bleed * Clear liquid diet, IV fluids to maintain blood pressure in the 90s-100s * Check CBC at midnight, and in the morning * Type and screen * With evidence of continued bleeding, consideration for bowel preparation and full colonoscopy Pertinent Lab Results: Vital Signs Date Time Temp Pulse Resp B/P B/P Pulse O2 O2 Flow FiO2 Mean Ox Delivery Rate 03/31 1412 98.7 68 20 118/68 97 03/31 1315 97.5 64 18 105/55 98 Room Air Room Air 03/31 0952 97.6 66 16 108/52 97 Room Air 03/31 0612 98.9 64 20 118/56 98 Room Air 03/31 0459 97.2 58 16 106/56 100 Room Air 03/31 0355 97.2 52 20 111/60 97 Room Air 03/30 1859 96.7 75 16 132/87 99 Room Air Laboratory Tests 03/31/17 1000: CBC w Diff Cancelled, WBC Cancelled, RBC Cancelled, Hgb Cancelled, Hct Cancelled , MCV Cancelled, MCH Cancelled, RDW Cancelled, Plt Count Cancelled, MPV Cancelled, PUBS MCHC Cancelled 03/31/17 0700: Anion Gap 6, Estimated GFR > 60, Glucose 82, Calcium 7.8 L, Phosphorus 4.4, Magnesium 1.8, Total Bilirubin 0.6, AST 23, ALT 40, Albumin 3.0 L, CBC w Diff NO MAN DIFF REQ, RBC 2.99 L, MCV 90.4, MCH 31.0, RDW 12.9, MPV 9.2, Gran % 58.9 , Lymphocytes % 29.2, Monocytes % 8.1, Eosinophils % 3.4, Basophils % 0.4, Absolute Granulocytes 3.0, Absolute Lymphocytes 1.5, Absolute Monocytes 0.4, Absolute Eosinophils 0.2, Absolute Basophils 0, [facility] MCHC 34.3 03/31/17 0500: Sodium Cancelled, Potassium Cancelled, Chloride Cancelled, Carbon Dioxide Cancelled, Anion Gap Cancelled, BUN Cancelled, Creatinine Cancelled, BUN/ Creatinine Ratio Cancelled 03/31/17 0320: CBC w Diff NO MAN DIFF REQ, RBC 3.06 L, MCV 90.7, MCH 30.7, RDW 13.3, MPV 8.9, Gran % 61.0, Lymphocytes % 28.3, Monocytes % 7.9, Eosinophils % 2.3, Basophils % 0.5, Absolute Granulocytes 3.3, Absolute Lymphocytes 1.5, Absolute Monocytes 0.4 , Absolute Eosinophils 0.1, Absolute Basophils 0, [facility] MCHC 33.8 03/31/17 0004: CBC w Diff Cancelled, WBC Cancelled, RBC Cancelled, Hgb Cancelled, Hct Cancelled , MCV Cancelled, MCH Cancelled, RDW Cancelled, Plt Count Cancelled, MPV Cancelled, [facility] MCHC Cancelled 03/31/17 0000: CBC w Diff Cancelled, WBC Cancelled, RBC Cancelled, Hgb Cancelled, Hct Cancelled , MCV Cancelled, MCH Cancelled, RDW Cancelled, Plt Count Cancelled, MPV Cancelled, PUBS MCHC Cancelled 03/30/17 2000: Anion Gap 13, Estimated GFR > 60, BUN/Creatinine Ratio 32.9 H, Glucose 99, Calcium 9.4, Total Bilirubin 0.5, AST 34, ALT 50, Alkaline Phosphatase 57, Total Protein 6.5, Albumin 4.3, Globulin 2.2, Albumin/Globulin Ratio 2.0, PT 11.4, INR 1.09, CBC w Diff NO MAN DIFF REQ, RBC 3.75 L, MCV 90.7, MCH 30.9, RDW 13.0, MPV 9.1, Gran % 67.8, Lymphocytes % 22.4, Monocytes % 6.9, Eosinophils % 2.3, Basophils % 0.6, Absolute Granulocytes 3.8, Absolute Lymphocytes 1.3, Absolute Monocytes 0.4, Absolute Eosinophils 0.1, Absolute Basophils 0, PUBS MCHC 34.1 Orders Procedure Date/time Status CBC WITHOUT DIFFERENTIAL 04/01 0600 Active Full Liquid Diet 03/31 L Complete Regular Diet 03/31 D Active Nothing by Mouth 03/31 B Complete CBC WITHOUT DIFFERENTIAL 03/31 1900 Active Vital Signs 03/31 1351 Active Teach/Educate 03/31 135 Active Pain Treatment and Response 03/31 135 Active Nutritional Intake, Monitor 03/31 135 Active Isolation 03/31 1351 Active Intake & Output 03/31 1351 Active Patient Care Conference 03/31 1351 Active Activity/Ambulation 03/31 1351 Active Patient Data 03/31 0837 Active ICU LAB BUNDLE 03/31 0700 Complete CBC WITHOUT DIFFERENTIAL 03/31 0700 Complete CBC WITHOUT DIFFERENTIAL 03/31 0200 Complete Nursing Misc 03/31 UNK Active PHYSICIAN CONSULT 03/30 2356 Active Pathway - chart 03/30 2307 Active House Staff 03/30 2307 Active Patient Data 03/30 2307 Active Code Status 03/30 2307 Active Patient Data 03/30 2304 Active Admit to inpatient 03/30 2235 Active Intake & Output 03/30 2045 Active MISTAKE 03/30 192 Active PROTHROMBIN TIME 03/30 1926 Complete COMPREHENSIVE METABOLIC PANEL 03/30 1926 Complete CBC WITHOUT DIFFERENTIAL 03/30 1926 Complete TYPE & SCREEN (NOT X-MATCH) 03/30 1926 Complete VTE Mechanical Prophylaxis 03/30 UNK Active Disposition Summary Disposition Principal Diagnosis: Lower GI bleeding 2/2 diverticular bleeding Additional Diagnosis: Dyslipidemia Discharge Disposition: home or self care Discharge Instructions General Discharge Information Code Status: Full Code Patient's Diet: Heart Healthy Patient's Activity: As tolerated Follow-Up Instructions/Appts: Please make an appointment to see your: 1) PCP within one week from discharge 2) Dr. Subramanian (GI) within one week from discharge. Medications at Discharge Discharge Medications: Continue taking these medications: Simvastatin (Simvastatin*) 20 MG TABLET 1 Tablet ORAL Every night Qty = 90 Comments: Last Taken:03/31/17 Time: 4:07P.M RECEIVED LIPITOR IN HOSPITAL 03/31/17 Multivitamin (Multi-Day Vitamins) 1 EACH TABLET 1 Tablet ORAL DAILY Comments: NOT GIVEN IN HOSPITAL Calcium Carbonate/Vitamin D3 (Calcium 500 + D Tablet) (Unknown Strength) TABLET 1 Tablet ORAL DAILY Comments: NOT GIVEN IN HOSPITAL Copies To: PRIYA KHAN,BRYN Robles
--- NOTE | 2017-03-31 17:28 | NUR ---
LATE ENTRY: PATIENT ARRIVED TO FLOOR AT 1340 VIA W/C FROM ER, DX GIB VS 98.7 68 20 118/68 97% ROOM AIR A&O, LCTA, INDEPENDENT, NO C/O PAIN IV #20 TO PINO WITH NS @ 125 ML/HR RUNNING FULL LIQUID DIET ORDERED IN ER, AWAITING DELIVERY TO FLOOR IF TOLERATING, ADV DINNER DIET TO REG, IF TOLERATES, CAN BE DISCHARGED ORIENTED TO ROOM AND CALL LYNNE CONTINUE TO MONITOR
[2017-03-31 21:19] LABS: ABSOLUTE BASOPHIL COUNT 0 /CUMM (0.0-0.2); ABSOLUTE EOSINOPHIL COUNT 0.2 /CUMM (0.0-0.7); ABSOLUTE GRANULOCYTE CT 3.3 /CUMM (1.4-6.5); ABSOLUTE LYMPH COUNT 1.5 /CUMM (1.2-3.4); ABSOLUTE MONOCYTE COUNT 0.4 /CUMM (0.10-0.60); BASOPHIL % 0.4 % (0.0-2.0); EOSINOPHIL % 3.2 % (0-5); GRANULOCYTE % 60.8 % (42.2-75.2); HEMATOCRIT 25.1 % (37-47); MEAN CORPUSCULAR HGB 30.7 PG (27.0-31.0); MEAN CORPUSCULAR HGB CONC 34.3 G/DL (33.0-37.0); MEAN CORPUSCULAR VOLUME 89.8 FL (81.0-99.0); MEAN PLATELET VOLUME 9.8 FL (7.4-10.4); PLATELET COUNT 162 /CUMM (130-400); RBC DISTRIBUTION WIDTH 13.1 % (11.5-14.5); WHITE BLOOD CELL COUNT 5.4 /CUMM (4.8-10.8)
--- NOTE | 2017-03-31 22:15 | NUR ---
[employer] JUWAN CASTAÑEDA CALLED TO D/C IV FLUIDS FOR THIS PT. PT WAS ADVANCED TO REG DIET FOR SUPPER AND WAS ABLE TO RETAIN IT. NO C/O NAUSEA, VOMITING OR URINARY S/S. GOOD PO INTAKE. [employer] TE[employer]ER SAID HE IS GOING TO D/C FLUIDS.
--- NOTE | 2017-03-31 22:39 | NUR ---
STEVE FARAH REPORTED THAT PT'S HR IS 48. THIS RN CHECKED MANUALLY. HR WAS 64. PT REPORTED THAT HER HR IS USUALLY LOW AND GOES LOW 39. WILL MONITOR.
[2017-03-31 22:40] VITALS: BP 122/70
[2017-04-01 06:34] VITALS: BP 120/74
--- NOTE | 2017-04-01 07:20 | PN- Housestaff ---
PRAKASH KHAN,MAUREEN 04/01/17 0720: Subjective Follow-up For: Lower GI bleed possibly diverticular in nature Subjective: Patient is walking around the floor, with no issues. She did not want to go home last night because she felt like she needed a little more time to get stronger. She is aware of her discharge this AM. Reports no further bloody BM's this AM. Review of Systems Constitutional: Reports: see HPI. Objective Last 24 Hrs of Vital Signs/I&O Vital Signs Date Time Temp Pulse Resp B/P B/P Pulse O2 O2 Flow FiO2 Mean Ox Delivery Rate 04/01 0634 98.1 46 18 120/74 98 Room Air 03/31 2240 98.1 63 20 122/70 98 Room Air 03/31 1412 98.7 68 20 118/68 97 03/31 1315 97.5 64 18 105/55 98 Room Air Room Air 03/31 0952 97.6 66 16 108/52 97 Room Air Intake & Output 04/01 0800 04/01 0000 03/31 1600 Intake Total 1475 1365 Output Total Balance 1475 1365 Intake, IV 875 1125 Intake, Oral 600 240 Number 2 Bowel Movements Patient 125 lb Weight Weight Reported by Patient Measurement Method Physical Exam General Appearance: Alert, Oriented X3, Cooperative, No Acute Distress Cardiovascular: Regular Rate, Normal S1, Normal S2 Lungs: Clear to Auscultation, Normal Air Movement Abdomen: Normal Bowel Sounds, Soft, No Tenderness Neurological: Normal Speech, Strength at 5/5 X4 Ext, Normal Tone, Sensation Intact Extremities: No Edema Current Medications: Current Medications Sig/Nery Start time Last Medication Dose Route Stop Time Status Admin Acetaminophen 650 MG Q6P PRN 03/30 2315 AC PO Acetaminophen 1,000 MG Q6P PRN 03/30 2315 AC IV Atorvastatin Calcium 10 MG 1700 03/31 1700 AC 03/31 PO 1607 Chlorhexidine 1 GM .STK-MED ONE 03/31 0740 DC Gluconate TOP 03/31 0741 Oxycodone HCl 5 MG Q6P PRN 03/30 2315 AC PO Sodium Chloride 1,000 ML Q8H 03/31 0015 DC 03/31 IV 1402 Last 24 Hrs of Lab/Nirav Results Last 24 Hrs of Labs/Mics: Laboratory Tests 04/01/17 0705: CBC w Diff Pending, WBC Pending, RBC Pending, Hgb Pending, Hct Pending, MCV Pending, MCH Pending, RDW Pending, Plt Count Pending, MPV Pending, PUBS MCHC Pending 03/31/17 1945: CBC w Diff NO MAN DIFF REQ, RBC 2.80 L, MCV 89.8, MCH 30.7, RDW 13.1, MPV 9.8, Gran % 60.8, Lymphocytes % 28.6, Monocytes % 7.0, Eosinophils % 3.2, Basophils % 0.4, Absolute Granulocytes 3.3, Absolute Lymphocytes 1.5, Absolute Monocytes 0.4 , Absolute Eosinophils 0.2, Absolute Basophils 0, PUBS MCHC 34.3 03/31/17 1000: CBC w Diff Cancelled, WBC Cancelled, RBC Cancelled, Hgb Cancelled, Hct Cancelled , MCV Cancelled, MCH Cancelled, RDW Cancelled, Plt Count Cancelled, MPV Cancelled, PUBS MCHC Cancelled Lines/Diet/Fluids Lines: peripheral lines Assessment/Plan Assessment: 61 y/o F who underwent a colonscopy on 03/26, that revealed left sided diverticulosis and 1.5 cm sessile rectal polyp, which was removed, presents to the ED with complaints of 8 episodes of BRBPR with clots and abdominal cramping. GI saw the patient in the ED, where she underwent a flexible sigmoidoscopy There was no bleeding from the rectal polypectomy site. There was fresh blood coating the mucosa in sigmoid colon and diverticula were identified. Patient was initially admitted to the ICU overnight and then downgraded to as she was found to be stable. Problem List: 1) Lower GI Bleed with no evidence of post polypectomy bleeding lesion and left sided diverticulosis with fresh blood. 2) Dyslipidemia Plan: - Admit to General Medicine. - CBC has remained stable. - Recheck CBC Q12 - Patient has been seen by GI and will be discharged today, to follow up with them as an outpatient for a colonoscopy. - Pain Management: Tylenol and Oxycodone - DVT PPX: ALPS - Code Status: Full Code. Problem List: 1. Lower GI bleed Pain Ratin Pain Location: None Pain Goal: Pain 4 or less Pain Plan: Per EMR Tomorrow's Labs & Rationales: None. Patient to be discharged today. DVT/Prophylaxis: mechanical Consulting Request: Consulting Specialty: Gastroenterology Consulting Physician: Dr. Vince Subramanian Reason for Consult: Lower GI Bleeding PATRICK MUNIZ MD 04/01/17 1036: Attending MD Review Statement Attending Statement Attending MD Statement: examined this patient, discuss w/resident/PA/ROLLING UP MACHINE OPERATOR, agreed w/resident/PA/ROLLING UP MACHINE OPERATOR, reviewed EMR data (avail) Attending Assessment/Plan: 61F PMH HLD, screening colonoscopy on 03/26/17 which found 1.5 cm sessile rectal polyp that was removed (path shows tubulovillous adenoma), tolerated the procedure well, returned to ED yesterday after multiple episodes of significant bright red rectal bleeding. Patient denies abdominal pain, lightheadedness, palpitations, chest pain, fatigue. She had 8+ episodes of liquid red stool last night. Underwent flexible sigmoidoscopy last night emergently by Dr. Subramanian which found no bleeding at polyp removal site but fresh blood and diverticulosis. Patient feels well and has no complaints. She had 2 BM in the past 24 hours with no blood in either. Hemodynamically stable. Her Hgb improved from 8 to 10. No further evidence of bleeding. AFVSS NAD NCAT Supple RRR CTAB Soft, NTND No c/c/e Pulses intact A&Ox3 no focal deficits 1. Lower GI bleed 2. Acute blood loss anemia 3. Hematochezia Plan - Stable for discharge home - Continue home medications - Outpatient GI and PCP follow up - Return to ED if repeat bleeding or if symptomatic anemia (symptoms of anemia were explained to patient)
[2017-04-01 07:49] LABS: ABSOLUTE BASOPHIL COUNT 0 /CUMM (0.0-0.2); ABSOLUTE EOSINOPHIL COUNT 0.3 /CUMM (0.0-0.7); ABSOLUTE GRANULOCYTE CT 2.6 /CUMM (1.4-6.5); ABSOLUTE LYMPH COUNT 1.5 /CUMM (1.2-3.4); ABSOLUTE MONOCYTE COUNT 0.4 /CUMM (0.10-0.60); BASOPHIL % 0.6 % (0.0-2.0); EOSINOPHIL % 6.5 % (0-5); GRANULOCYTE % 53.2 % (42.2-75.2); HEMATOCRIT 29.3 % (37-47); MEAN CORPUSCULAR HGB CONC 34.3 G/DL (33.0-37.0); MEAN CORPUSCULAR VOLUME 90.4 FL (81.0-99.0); MEAN PLATELET VOLUME 9.2 FL (7.4-10.4); PLATELET COUNT 193 /CUMM (130-400); RBC DISTRIBUTION WIDTH 13.3 % (11.5-14.5); RED BLOOD CELL CT 3.24 /CUMM (4.20-5.40); WHITE BLOOD CELL COUNT 4.9 /CUMM (4.8-10.8)
== END 2017-04-01 10:43 | DRG 378 ==
LOC: ERH 18:55 → ERHI 22:35 → ENRESERV 23:33 → CANRESERV 23:33 → EDBEDREQ 03-31 09:50 → ERHI 03-31 09:51 → ENRESERV 03-31 12:12 → CMPBEDREQ 03-31 12:52 → 2NA 03-31 13:49 → ENPENDDIS 04-01 10:25 → 2NA 04-01 10:43
PROVIDERS: Internal Medicine; Physician Assistant; Student in an Organized Health Care Education/Training Program; ADMIT Student in an Organized Health Care Education/Training Program
PROC: 0DJD8ZZ Inspection of Lower Intestinal Tract, Via Natural or Artificial Opening Endoscopic (ICD-10-PCS; principal; 2017-03-30)
DX: K57.31 Diverticulosis of large intestine without perforation or abscess with bleeding (principal); D62 Acute posthemorrhagic anemia; E78.5 Hyperlipidemia, unspecified; Z87.19 Personal history of other diseases of the digestive system
CPT/HCPCS: 2NASP; ERO; 36415; 82436; 96360